=== PATIENT | female | born 1995 | race Hispanic/Latino ===

== ENCOUNTER 2019-05-25 05:51 | Inpatient (IN) | payer OTHER ==
[2019-05-25 06:27] VITALS: BMI 36.5
[2019-05-25] MEDS ORDERED: Promethazine HCl 25 MG/ML VIAL IM PRN ×2 (06:34→16:34)
[2019-05-25] MEDS ORDERED: Acetaminophen 500 MG TAB PO PRN (06:34)
[2019-05-25] MEDS ORDERED: Ondansetron PF 4 MG/2 ML Vial IVP PRN ×2 (06:34→16:34)
[2019-05-25] MEDS ORDERED: Zolpidem Tartrate 5 MG TAB PO PRN ×2 (06:34→16:34)
[2019-05-25] MEDS ORDERED: hydrALAZINE 20 MG/ML VIAL SLOW IVP PRN ×3 (06:34→22:30)
[2019-05-25 06:44] LABS: Amnisure Test RUPTURE DETECTED (No Rupture)
[2019-05-25 06:45] LABS: Amnisure Internal Control QC ACCEPTABLE (ACCEPTABLE)
[2019-05-25] MEDS ORDERED: Diphenoxylate HCl/Atropine Tablet PO PRN (06:45)
[2019-05-25] MEDS ORDERED: HYDROcodone/Acetaminophen 5/325 mg Tablet PO PRN ×4 (06:45→16:34)
[2019-05-25] MEDS ORDERED: NS / Oxytocin 40 units/1000ml 1,000 ML IV SCH ×2 (06:45→16:34)
[2019-05-25] MEDS ORDERED: Misoprostol 200 MCG TAB RC PRN (06:45)
[2019-05-25] MEDS ORDERED: Carboprost 250 MCG/ML AMP IM PRN (06:45)
[2019-05-25] MEDS ORDERED: NS w/ Oxytocin 10 units 500 ML IV SCH ×2 (06:45)
[2019-05-25] MEDS ORDERED: Ibuprofen 800 MG TAB PO PRN (06:45)
[2019-05-25] MEDS ORDERED: Lidocaine 1% (PF) 30 ML VIAL SC PRN (06:45)
[2019-05-25] MEDS ORDERED: Methylergonovine 0.2 MG/ML VIAL IM PRN ×2 (06:45→16:34)
[2019-05-25 06:52] LABS: Mean Corpuscular HGB CONC 33.4 g/dL (32.0-36.0); Mean Corpuscular Hemoglobin 26.4 pg (27.0-31.0); Mean Corpuscular Volume 78.9 fL (78.0-98.0); Mean Platelet Volume 9.8 fL (7.4-10.4); Platelet Count 170 thou/uL (130-400); RBC Distribution Width 16.4 % (11.5-14.5); Red Blood Cell (RBC) Count 3.78 mill/uL (4.20-5.40); White Blood Cell (WBC) Count 8.6 thou/uL (4.8-10.8)
[2019-05-25] MEDS: Butorphanol Tartrate 1 MG/ML VIAL SLOW IVP PRN ×2 (07:01→16:33)
[2019-05-25 07:27] LABS: Syphilis Antibody Nonreactive (Nonreactive); Syphilis Antibody Index 0.04 S/CO (<1.00 Non-Reactive)
[2019-05-25 07:28] LABS: HBSAg Index 0.11 S/CO (0-0.99); Hep B Surf Ag Non-Reactive S/CO (NonReactive)
[2019-05-25 11:19] LABS: ALT (SGPT) 9 U/L (8-55); AST (SGOT) 15 U/L (5-34); Alkaline Phosphatase 272 U/L (40-110); Anion Gap 14 mmol/L (10-20); BUN (Urea Nitrogen) 5 mg/dL (7.0-18.7); Bilirubin, Total 0.5 mg/dL (0.2-1.2); Calc. Creatinine Clearance 199 mL/min (70-130); Calcium 8.8 mg/dL (7.8-10.44); Carbon Dioxide 19 mmol/L (22-29); Chloride 107 mmol/L (98-107); Estimated GFR-MDRD Greater than 90; Globulin 3.8 g/dL (2.4-3.5); Glucose 72 mg/dL (70-105); Protein, Total 6.8 g/dL (6.0-8.3); Sodium 136 mmol/L (136-145)
[2019-05-25] MEDS ORDERED: Lidocaine 1% (PF) 30 ML VIAL ONE (13:48)
[2019-05-25] MEDS: Lactated Ringer's 1,000 ML IV SCH (14:31)
[2019-05-25] MEDS ORDERED: Benzocaine-Menthol 82.5 ML CAN TOP PRN (16:34)
[2019-05-25] MEDS ORDERED: Bisacodyl 10 MG SUPP PR PRN (16:34)
[2019-05-25] MEDS ORDERED: Preparation H Ointment 28 GM TUBE PR PRN (16:34)
[2019-05-25] MEDS ORDERED: Misoprostol 200 MCG TAB VAG PRN (16:34)
[2019-05-25] MEDS ORDERED: Lanolin Ointment 7 GM TUBE TOP PRN (16:34)
[2019-05-25] MEDS ORDERED: diphenhydrAMINE 25 MG CAP PO PRN (16:34)
[2019-05-25] MEDS ORDERED: Milk Of Magnesia 30 ML UDCUP PO PRN (16:34)
[2019-05-25] MEDS ORDERED: FLU VACC QS2019-20(6MOS UP)/PF 60 MCG/0.5 ML SYRINGE IM ONE (21:00)
[2019-05-25] MEDS: Docusate Calcium (SURFAK) 240 MG CAP PO SCH (21:31)
[2019-05-25] MEDS: Ibuprofen 800 MG TAB PO SCH (21:31)
[2019-05-26] MEDS: NIFEdipine XL 30 MG TAB PO SCH ×2 (00:21→23:33)
--- NOTE | 2019-05-26 02:00 | DN ---
DATE OF PROCEDURE: 05/25/2019 TIME OF SERVICE: At 1458 hours, [employer] Day[employer] Time. PREOPERATIVE DIAGNOSIS: Intrauterine at 37 weeks and 6 days with spontaneous labor and spontaneous rupture of membranes on presentation with positive AmniSure test. POSTOPERATIVE DIAGNOSIS: Intrauterine at 37 weeks and 6 days with spontaneous labor and spontaneous rupture of membranes on presentation with positive AmniSure test. PROCEDURE PERFORMED: Spontaneous vaginal delivery over second-degree perineal laceration. FINDINGS: Viable male weighing 3447 g or 7 pounds 10 ounces, Apgars of 9 and 9. ESTIMATED BLOOD LOSS: 200 mL. COMPLICATIONS: None. PROCEDURE IN DETAIL: The patient presented to [facility] where she was admitted to the labor and delivery service. The patient underwent a normal and uneventful labor with normal cervical dilatation until she was found to be completely dilated. She was then allowed to push and was able to bring the baby down and delivered the baby in a vertex presentation without difficulties. Once the head delivered in occiput anterior position, the shoulders followed spontaneously along with the rest of the baby's body. Once out the baby's mouth and nose were bulb suctioned. The cord was clamped and cut and baby was handed to waiting attendants. Cord blood was collected. Gentle fundal massage was performed and the placenta delivered intact without problems. Hemostasis was assured. Quantitative blood loss was calculated. Inspection of the cervix, vaginal vault, and perineum did not reveal any lacerations needing suturing. Once again, hemostasis was within normal limits and the patient was allowed to recover in the labor and delivery room. Baby went to nursery. Job ID: [id number]
[2019-05-26] MEDS: Ibuprofen 800 MG TAB PO SCH ×3 (06:24→21:38)
[2019-05-26 06:38] LABS: Hemoglobin 8.6 g/dL (12.0-16.0); Mean Corpuscular HGB CONC 33.7 g/dL (32.0-36.0); Mean Corpuscular Hemoglobin 26.6 pg (27.0-31.0); Mean Corpuscular Volume 78.8 fL (78.0-98.0); Mean Platelet Volume 9.9 fL (7.4-10.4); Platelet Count 140 thou/uL (130-400); RBC Distribution Width 16.5 % (11.5-14.5); Red Blood Cell (RBC) Count 3.23 mill/uL (4.20-5.40); White Blood Cell (WBC) Count 8.9 thou/uL (4.8-10.8)
[2019-05-26] MEDS: Ferrous Sulfate 325 MG TAB PO SCH ×3 (07:11→17:22)
--- NOTE | 2019-05-26 07:35 | PDOC.PP ---
Post Progress Note Post Day #: 1 Subjective: Doing well, no complaints. BPs improved overnight. PO intake tolerated: yes Ambulation: yes Vital Signs (12 hours) Temp Pulse Resp BP BP 05/26/19 04:12 98.6 F 86 18 130/89 05/26/19 00:21 97.7 F 86 18 130/82 130/82 05/25/19 22:47 100 18 135/97 H 05/25/19 22:26 91 160/90 H 05/25/19 21:55 91 18 160/90 H 05/25/19 21:31 87 18 161/91 H Weight Weight 187 lb - Physical Examination General: NAD Respiratory: non-labored breathing Abdominal: lochia (normal), no distention, appropriately TTP Fundus firm & at: below umbilicus Neurological: no gross focal deficits Psychiatric: A&Ox3, normal affect Result Diagrams: 05/26/19 06:22 05/25/19 10:35 Additional Labs: Post Labs Blood Type A POSITIVE 05/25/19 06:38 Hep Bs Antigen Non-Reactive S/CO (NonReactive) 05/25/19 06:38 - Assessment/Plan Continue routine PP management. Anticipate d/c tomorrow.
[2019-05-26] MEDS: Lactated Ringer's 1,000 ML IV SCH (07:42)
[2019-05-26] MEDS: Prenatal Vitamin 1 TAB PO SCH (08:25)
[2019-05-26] MEDS: Docusate Calcium (SURFAK) 240 MG CAP PO SCH ×2 (08:25→21:38)
[2019-05-26] MEDS ORDERED: Measles/Mumps/Rubella 10 MCG/0.5 ML VIAL SC ONE (09:00)
[2019-05-26] MEDS ORDERED: Varicella virus, LIVE 0.5 ML VIAL SC ONE (09:00)
[2019-05-26] MEDS ORDERED: Adacel (T-DAP) 0.5 ML SYRINGE IM ONE (09:00)
[2019-05-27] MEDS: Ibuprofen 800 MG TAB PO SCH (05:31)
[2019-05-27 07:57] VITALS: BP 128/69; TEMP 98.8
[2019-05-27] MEDS: Docusate Calcium (SURFAK) 240 MG CAP PO SCH (08:48)
[2019-05-27] MEDS: Ferrous Sulfate 325 MG TAB PO SCH (08:48)
[2019-05-27] MEDS: Prenatal Vitamin 1 TAB PO SCH (08:48)
--- NOTE | 2019-05-27 09:09 | PDOC.PP ---
Post Progress Note Post Day #: 2 Subjective: Patient doing well. No significant overnight events. Patient tolerating PO, ambulating without difficulty. PO intake tolerated: yes Flatus: yes Ambulation: yes Vital Signs (12 hours) Temp Pulse Resp BP Pulse Ox 05/27/19 07:45 98.8 F 104 H 18 128/69 98 05/27/19 05:36 98.2 F 86 121/74 05/26/19 23:36 98.1 F 96 18 132/82 05/26/19 23:33 99 Weight Weight 84.822 kg - Physical Examination General: NAD Cardiovascular: RRR Respiratory: non-labored breathing Abdominal: + bowel sounds, lochia (less than period), appropriately TTP Fundus firm & at: below umbilicus Skin: no rash Neurological: no gross focal deficits Psychiatric: A&Ox3, normal affect Result Diagrams: 05/26/19 06:22 05/25/19 10:35 Additional Labs: Post Labs Blood Type A POSITIVE 05/25/19 06:38 Hep Bs Antigen Non-Reactive S/CO (NonReactive) 05/25/19 06:38 (1) (spontaneous vaginal delivery) Code(s): O80 - ENCOUNTER FOR FULL-TERM UNCOMPLICATED DELIVERY Status: Acute (2) Term Code(s): Z34.90 - ENCNTR FOR SUPRVSN OF NORMAL , UNSP, UNSP TRIMESTER Status: Acute - Assessment/Plan Patient doing well. Routine PP care. Meeting all PP milestones. BP's well controlled over past 24 hours. Plan for d/c home today.
[2019-05-27] MEDS ORDERED: FLU VACC QS2019-20(6MOS UP)/PF 60 MCG/0.5 ML SYRINGE IM ONE (09:45)
== END 2019-05-27 12:25 | disposition home or self-care (01) | DRG 807 ==
LOC: L&D/OP 05:51 → L&D 06:40 → 3SW 18:25
PROVIDERS: ADMIT Obstetrics & Gynecology; ATTEND Obstetrics & Gynecology
PROC: 10E0XZZ Delivery of Products of Conception, External Approach (ICD-10-PCS; principal; 2019-05-25)
PROC: 0KQM0ZZ Repair Perineum Muscle, Open Approach (ICD-10-PCS; 2019-05-25)
PROC: 3E02340 Introduction of Influenza Vaccine into Muscle, Percutaneous Approach (ICD-10-PCS; 2019-05-25)
DX: O70.1 Second degree perineal laceration during delivery (principal); Z37.0 Single live birth; Z3A.37 37 weeks gestation of pregnancy; Z23 Encounter for immunization
CPT/HCPCS: 36415; 80053; 82570; 84112; 84156; 85027; 86780; 86850; 86900; 86901; 87340; 90471; 90686; 90715; G0008; J0360; J0595; J2001

== ENCOUNTER 2024-01-04 13:31 | Emergency (ER) | payer OTHER ==
[2024-01-04] MEDS ORDERED: Ibuprofen 200 MG TAB ONE (14:25)
== END 2024-01-04 14:47 | disposition home or self-care (01) ==
LOC: ERS 13:31
DX: S93.601A Unspecified sprain of right foot, initial encounter (principal); W20.8XXA Other cause of strike by thrown, projected or falling object, initial encounter